=== PATIENT | female | born 1955 | race African-American/Black ===

== ENCOUNTER 2016-12-14 08:54 | Outpatient (CLI) | payer OTHER ==
[2016-12-14 09:33] LABS: #Basophils 0.1 thou/uL (0.0-0.2); #Eosinphils 0.4 thou/uL (0.0-0.7); #Lymphocytes 2.1 thou/uL (1.20-3.40); #Monocytes 0.5 thou/uL (0.11-0.59); #Neutrophils 3.9 thou/uL (1.40-6.50); %Basophils 1.8 % (0.0-1.0); %Eosinophils 5.1 % (0.0-10.0); %Lymphocytes 29.9 % (21.0-51.0); %Monocytes 7.5 % (0.0-10.0); %Neutrophils 55.6 % (42.0-75.0); Hemoglobin 14.1 g/dL (12.0-16.0); Mean Corpuscular HGB CONC 35.1 g/dL (32.0-36.0); Mean Corpuscular Hemoglobin 29.4 pg (27.0-31.0); Mean Corpuscular Volume 83.9 fl (81.0-99.0); Mean Platelet Volume 9.3 fL (7.4-10.4); Platelet Count 269 thou/uL (130-400); RBC Distribution Width 13.8 % (11.5-14.5); Red Blood Cell (RBC) Count 4.78 mill/uL (4.20-5.40); White Blood Cell (WBC) Count 7.1 thou/uL (4.8-10.8)
[2016-12-14 10:11] LABS: ALT (SGPT) 27 U/L (8-55); AST (SGOT) 32 U/L (5-34); Alkaline Phosphatase 86 U/L (40-150); Anion Gap 14 mmol/L (10-20); BUN (Urea Nitrogen) 11 mg/dL (9.8-20.1); Bilirubin, Total 0.4 mg/dL (0.2-1.2); Calc. Creatinine Clearance 0 mL/min (70-130); Calcium 8.6 mg/dL (7.8-10.44); Carbon Dioxide 27 mmol/L (23-31); Chloride 100 mmol/L (98-107); Estimated GFR-MDRD Greater than 90; Globulin 3.6 g/dL (2.4-3.5); Glucose 152 mg/dL (80-115); Protein, Total 7.6 g/dL (6.0-8.3); Sodium 138 mmol/L (136-145)
[2016-12-14 10:26] LABS: Free T4 (Free Thyroxine) 0.98 ng/dL (0.70-1.48); Thyroid Stimulating Hormone 2.9681 uIU/mL (0.35-4.94)
[2016-12-14 17:37] LABS: Potassium 2.9 mmol/L (3.5-5.1)
== END 2016-12-14 08:55 | disposition home or self-care (01) ==
LOC: MADLABBHPM 08:54
PROVIDERS: ATTEND Family Medicine
DX: G47.19 Other hypersomnia (principal)
CPT/HCPCS: 36415; 80053; 83036; 84439; 84443; 85025

== ENCOUNTER 2016-12-26 09:32 | Outpatient (CLI) | payer OTHER ==
[2016-12-26 10:09] LABS: Anion Gap 13 mmol/L (10-20); BUN (Urea Nitrogen) 15 mg/dL (9.8-20.1); Calc. Creatinine Clearance 0 mL/min (70-130); Calcium 9.4 mg/dL (7.8-10.44); Carbon Dioxide 24 mmol/L (23-31); Cardiac Risk 3.7 (Less than 4.5); Chloride 105 mmol/L (98-107); Cholesterol 220 mg/dl (< 200 Desired); Estimated GFR-MDRD 88; Glucose 107 mg/dL (80-115); HDL Cholesterol 60 mg/dL (>60 Neg Risk); LDL Cholesterol, Calculated 136 mg/dL; Potassium 3.4 mmol/L (3.5-5.1); Sodium 139 mmol/L (136-145); Triglycerides 118 mg/dL (Less than 150)
== END 2016-12-26 09:33 ==
LOC: MADLABBHPM 09:32
PROVIDERS: ATTEND Family Medicine
DX: E87.6 Hypokalemia (principal); E11.9 Type 2 diabetes mellitus without complications
CPT/HCPCS: 36415; 80048; 80061

== ENCOUNTER 2017-02-15 07:49 | Emergency (ER) | payer OTHER ==
[2017-02-15] MEDS ORDERED: HYDROcodone/Acetaminophen 10/325 mg Tablet ONE (08:42)
[2017-02-15] MEDS ORDERED: Ciprofloxacin 500 MG TAB ONE (08:58)
[2017-02-15 10:45] LABS: Clarity Clear (Clear)
[2017-02-15 10:46] LABS: Bacteria/HPF Rare-Few HPF (None Seen); Bilirubin Negative (Negative); Blood, Urine Negative (Negative); Glucose, Urine (Dipstick) Negative (Negative); Leukocyte Moderate (Negative); Nitrite Negative (Negative); Protein, Urine (Dipstick) Negative (Neg-Trace); RBC/HPF 0-3 HPF (0-3); Urobilinogen 0.2 mg/dL (0.2-1.0)
== END 2017-02-15 09:05 | disposition home or self-care (01) ==
LOC: MADERS 07:49
DX: N39.0 Urinary tract infection, site not specified (principal); E11.9 Type 2 diabetes mellitus without complications; I10 Essential (primary) hypertension; E78.00 Pure hypercholesterolemia, unspecified; Z79.899 Other long term (current) drug therapy; Z79.84 Long term (current) use of oral hypoglycemic drugs
CPT/HCPCS: 81003; 81015; 99283

== ENCOUNTER 2017-03-03 10:08 | Emergency (ER) | payer OTHER ==
[2017-03-03] MEDS ORDERED: Ketorolac Tromethamine 60 MG/2 ML VIAL ONE (10:44)
== END 2017-03-03 11:03 | disposition home or self-care (01) ==
LOC: MADERS 10:08
DX: M54.5 Low back pain (principal); I10 Essential (primary) hypertension; E11.9 Type 2 diabetes mellitus without complications; E78.00 Pure hypercholesterolemia, unspecified; M10.9 Gout, unspecified; W01.0XXA Fall on same level from slipping, tripping and stumbling without subsequent striking against object, initial encounter
CPT/HCPCS: 96372; J1885

== ENCOUNTER 2017-03-30 17:25 | Outpatient (CLI) | payer BC, OTHER | END 2017-03-30 17:26 | disposition home or self-care (01) | LOC: MADLABBHPM 17:25 | PROVIDERS: ATTEND Family Medicine | DX: R10.30 Lower abdominal pain, unspecified (principal) | CPT/HCPCS: 87086 ==

== ENCOUNTER 2017-05-24 08:07 | Outpatient (CLI) | payer BC ==
--- NOTE | 2017-05-24 11:47 | ULT ---
PELVIC ULTRASOUND: Technique: Transabdominal and endovaginal ultrasound of the pelvis performed. History: Post-menopausal bleeding x two weeks. FINDINGS: Uterus is enlarged and heterogeneous. Uterine measurements recorded at 12.1 x 8.8 x 8.2 cm. Endometrial stripe is not identified due to the diffuse heterogeneity of the uterus. A large solid e chogenic mass in the uterus measures up to 5 cm suggesting a large fibroid, possibly with some calci fications producing shadowing. Neither ovary is identified on either transabdominal or endovaginal exam. IMPRESSION: Enlarged heterogeneous uterus suggesting fibroid uterus. MRI pelvis is suggested to better define ut erine fibroids and ovaries as indicated. Ovaries are not identified on this study. POS: [facility]
== END 2017-05-24 08:08 | disposition home or self-care (01) ==
LOC: MADULT 08:07
PROVIDERS: ATTEND Family Medicine
DX: N95.0 Postmenopausal bleeding (principal)
CPT/HCPCS: 76856

== ENCOUNTER 2017-07-06 08:10 | Outpatient (CLI) | payer BC ==
[2017-07-07 15:51] LABS: Follow-up Chemistry Comp? YES; Follow-up Result - Chemistry REPORT FAXED
== END 2017-07-06 08:11 | disposition home or self-care (01) ==
LOC: MADLAB 08:10
PROVIDERS: ATTEND Student in an Organized Health Care Education/Training Program
DX: N83.9 Noninflammatory disorder of ovary, fallopian tube and broad ligament, unspecified (principal)
CPT/HCPCS: 36415; 86304

== ENCOUNTER 2017-08-16 11:49 | Emergency (ER) | payer BC ==
--- NOTE | 2017-08-16 12:54 | RAD ---
CHEST ONE VIEW: HISTORY: Cough. COMPARISON: Chest one view from 07/27/2017. FINDINGS: The port catheter tip sits at the mid SVC. The lungs are slightly hypoinflated. No focal air space consolidation, pneumothorax, or effusion. The cardiac silhouette and mediastinal contour are similar . IMPRESSION: 1. Lung hypoinflation and vascular crowding. 2. Possible nodule projecting in the right lung base, although this may be the confluence of shadows . Follow-up two views of the chest recommended. POS: [facility]
[2017-08-16 12:56] LABS: Eosinophils 1 % (0-10); Hemoglobin 11.5 g/dL (12.0-16.0); Lymphocytes 58 % (21-51); MDiff Complete? YES; Mean Corpuscular HGB CONC 33.3 g/dL (32.0-36.0); Mean Corpuscular Hemoglobin 26.5 pg (27.0-31.0); Mean Corpuscular Volume 79.5 fl (81.0-99.0); Mean Platelet Volume 8.4 fL (7.4-10.4); Monocytes 4 % (0-10); Neutrophil 37 % (42-75); Nucleated RBC 2 % (0); Platelet Count 139 thou/uL (130-400); RBC Distribution Width 14.2 % (11.5-14.5); Red Blood Cell (RBC) Count 4.36 mill/uL (4.20-5.40); White Blood Cell (WBC) Count 3.6 thou/uL (4.8-10.8)
[2017-08-16 13:01] LABS: ALT (SGPT) 17 U/L (8-55); AST (SGOT) 21 U/L (5-34); Alkaline Phosphatase 75 U/L (40-150); Anion Gap 18 mmol/L (10-20); BUN (Urea Nitrogen) 14 mg/dL (9.8-20.1); Bilirubin, Total 0.4 mg/dL (0.2-1.2); Calc. Creatinine Clearance 0 mL/min (70-130); Calcium 8.6 mg/dL (7.8-10.44); Carbon Dioxide 25 mmol/L (23-31); Chloride 104 mmol/L (98-107); Estimated GFR-MDRD Greater than 90; Globulin 3.6 g/dL (2.4-3.5); Glucose 91 mg/dL (80-115); Potassium 3.6 mmol/L (3.5-5.1); Protein, Total 7.6 g/dL (6.0-8.3); Sodium 143 mmol/L (136-145)
[2017-08-16 13:03] LABS: Troponin I Less than 0.010 ng/mL (< 0.028)
[2017-08-16 13:35] LABS: CKMB 1.5 ng/mL (0-6.6)
[2017-08-16 17:06] LABS: PTT 34.4 SEC (22.9-36.1); Prothrombin Time 14.2 SEC (12.0-14.7)
[2017-08-16 17:29] LABS: D-Dimer Test Greater than 20.00 *mcg/mL (0.27-0.43)
[2017-08-17 10:13] LABS: INR-International Normal Ratio 1.1
== END 2017-08-16 12:48 | disposition short-term general hospital (02) ==
LOC: MADERS 11:49
DX: R07.9 Chest pain, unspecified (principal); E11.9 Type 2 diabetes mellitus without complications; I10 Essential (primary) hypertension; Z79.899 Other long term (current) drug therapy
CPT/HCPCS: 71045; 80053; 82553; 84484; 85025; 85379; 85610; 85730; 93005; 94760

== ENCOUNTER 2017-09-08 17:50 | Emergency (ER) | payer BC ==
[~2017-09-08 17:50] MED LIST: NS 0.9% w/ 40 MEQ KCL 1,000 ML BAG IV ONE
[2017-09-08] MEDS ORDERED: methylPREDNISolone Sod Succ/PF 125 MG/2 ML VIAL ONE (18:43)
[2017-09-08] MEDS ORDERED: Dexamethasone 10 MG/ML VIAL ONE (18:44)
[2017-09-08] MEDS ORDERED: Lorazepam 2 MG/ML VIAL ONE (18:45)
[2017-09-08] MEDS ORDERED: Sodium Chloride 0.9% 1,000 ML ONE (18:46)
[2017-09-08 18:50] LABS: INR-International Normal Ratio 1.1; PTT 37.8 SEC (22.9-36.1); Prothrombin Time 14.3 SEC (12.0-14.7)
--- NOTE | 2017-09-08 18:57 | RAD ---
FRONTAL VIEW CHEST 09/08/17 COMPARISON: 08/16/17 INDICATION: Weakness. FINDINGS: Left chest port remains. Lungs are hypoinflated. Mild interstitial perihilar prominence is present wh ich may be related to edema. Cardiomediastinal silhouette is stable. IMPRESSION: Findings to indicate mild edema. Correlate clinically. POS: [facility]
[2017-09-08 19:02] LABS: ALT (SGPT) 14 U/L (8-55); AST (SGOT) 19 U/L (5-34); Albumin 3.8 g/dL (3.4-4.8); Alkaline Phosphatase 69 U/L (40-150); Anion Gap 20 mmol/L (10-20); BUN (Urea Nitrogen) 24 mg/dL (9.8-20.1); Bilirubin, Total 0.4 mg/dL (0.2-1.2); CK (CPK) 94 U/L (29-168); CKMB 0.5 ng/mL (0-6.6); Calc. Creatinine Clearance 0 mL/min (70-130); Calcium 7.6 mg/dL (7.8-10.44); Carbon Dioxide 22 mmol/L (23-31); Chloride 102 mmol/L (98-107); Estimated GFR-MDRD 85; Globulin 3.4 g/dL (2.4-3.5); Glucose 107 mg/dL (80-115); Lipase 25 U/L (8-78); Protein, Total 7.2 g/dL (6.0-8.3); Sodium 141 mmol/L (136-145); Troponin I Less than 0.010 ng/mL (< 0.028)
[2017-09-08 19:09] LABS: Potassium 2.5 mmol/L (3.5-5.1)
[2017-09-08 19:16] LABS: Mean Corpuscular HGB CONC 33.3 g/dL (32.0-36.0); Mean Corpuscular Hemoglobin 25.8 pg (27.0-31.0); Mean Corpuscular Volume 77.3 fl (81.0-99.0); Mean Platelet Volume 8.1 fL (7.4-10.4); Platelet Count 197 thou/uL (130-400); RBC Distribution Width 15.5 % (11.5-14.5); Red Blood Cell (RBC) Count 3.87 mill/uL (4.20-5.40); White Blood Cell (WBC) Count 3.9 thou/uL (4.8-10.8)
[2017-09-08 19:17] LABS: Lymphocytes 65 % (21-51); MDiff Complete? YES; Metamyelocyte 2 % (0-0); Monocytes 6 % (0-10); Myelocyte 2 % (0-0); Neutrophil 12 % (42-75); PLT Morphology Comment Appears Adequate; Reactive Lymphocytes 13 % (0-10)
[2017-09-08 19:51] LABS: Bilirubin Negative (Negative); Blood, Urine Trace (Negative); Clarity Hazy (Clear); Glucose, Urine (Dipstick) Negative (Negative); Leukocyte Small (Negative); Nitrite Negative (Negative); Protein, Urine (Dipstick) Negative (Neg-Trace); RBC/HPF 0-3 HPF (0-3); Specific Gravity, Urine 1.013 (1.002-1.036); Urobilinogen 0.2 mg/dL (0.2-1.0); pH, Urine 5.5 (5.0-9.0)
[2017-09-08 19:52] LABS: Bacteria/HPF Rare-Few HPF (None Seen); Squamous Epithelial 0-3 HPF (0-3)
[2017-09-08] MEDS ORDERED: Ondansetron HCl/PF 4 MG/2 ML Vial ONE ×2 (19:52→19:53)
[2017-09-08] MEDS ORDERED: Potassium Chloride 20 MEQ TAB ONE (20:05)
== END 2017-09-08 22:10 | disposition short-term general hospital (02) ==
LOC: MADERS 17:50
DX: E87.6 Hypokalemia (principal); E83.42 Hypomagnesemia; R06.4 Hyperventilation; N39.0 Urinary tract infection, site not specified; C56.9 Malignant neoplasm of unspecified ovary; I10 Essential (primary) hypertension; E78.00 Pure hypercholesterolemia, unspecified; Z79.899 Other long term (current) drug therapy; Z79.84 Long term (current) use of oral hypoglycemic drugs
CPT/HCPCS: 71045; 80053; 81001; 82150; 82550; 82553; 83690; 83735; 83880; 84484; 85025; 85610; 85730; 87040; 87081; 87086; 87430; 87804; 93005; 94760; 96361; 96365; 96374; 96375; J1100; J2060; J2405; J2930; J7050; J7620

== ENCOUNTER 2017-09-25 13:56 | Emergency (ER) | payer BC ==
[2017-09-25] MEDS ORDERED: MORPHINE 10 MG/ML SYRINGE ONE (14:42)
[2017-09-25] MEDS ORDERED: Ondansetron HCl/PF 4 MG/2 ML Vial ONE (14:42)
[2017-09-25] MEDS ORDERED: Lorazepam 2 MG/ML VIAL ONE (14:42)
[2017-09-25] MEDS ORDERED: Ketorolac Tromethamine 30 MG/ML VIAL ONE (14:42)
--- NOTE | 2017-09-25 15:13 | CT ---
CT BRAIN WITHOUT CONTRAST: Date: 09/25/17 HISTORY: Facial tingling and numbness. Patient has end-stage cancer. FINDINGS: No evidence of infarct, hemorrhage, midline shift, or abnormal extra-axial fluid collections are seen . The ventricular size is normal and the basilar cisterns are patent. The bony calvarium is intact. T here is mucosal disease in the left posterior ethmoid air cells. Absence of IV contrast reduces the sensitivity of exam. If there is concern for intracranial metastas is, further evaluation with contrast enhanced MRI should be performed. IMPRESSION: No CT evidence of acute intracranial process. POS: [facility]
[2017-09-25 15:32] LABS: ALT (SGPT) 14 U/L (8-55); AST (SGOT) 16 U/L (5-34); Albumin 3.7 g/dL (3.4-4.8); Alkaline Phosphatase 66 U/L (40-150); Anion Gap 21 mmol/L (10-20); BUN (Urea Nitrogen) 13 mg/dL (9.8-20.1); Bilirubin, Total 0.4 mg/dL (0.2-1.2); Calc. Creatinine Clearance 0 mL/min (70-130); Carbon Dioxide 18 mmol/L (23-31); Chloride 106 mmol/L (98-107); Estimated GFR-MDRD 81; Globulin 2.9 g/dL (2.4-3.5); Glucose 79 mg/dL (80-115); Protein, Total 6.6 g/dL (6.0-8.3); Sodium 142 mmol/L (136-145)
[2017-09-25 15:36] LABS: Anisocytosis SLIGHT = 6-15 cells (100X) (0-5/hpf); Band 2 % (5-11); Hypochromia SLIGHT = 6-15 cells (100X) (0-5/hpf); Lymphocytes 32 % (21-51); MDiff Complete? YES; Mean Corpuscular HGB CONC 33.1 g/dL (32.0-36.0); Mean Corpuscular Hemoglobin 26.3 pg (27.0-31.0); Mean Corpuscular Volume 79.3 fl (81.0-99.0); Mean Platelet Volume 9.1 fL (7.4-10.4); Metamyelocyte 1 % (0-0); Monocytes 11 % (0-10); Myelocyte 1 % (0-0); Neutrophil 36 % (42-75); Nucleated RBC 3 % (0); PLT Morphology Comment Appears Adequate; Platelet Count 158 thou/uL (130-400); Polychromasia SLIGHT = 2-3 cells (100X) (0-2/hpf); RBC Distribution Width 20.2 % (11.5-14.5); Reactive Lymphocytes 17 % (0-10); Red Blood Cell (RBC) Count 3.06 mill/uL (4.20-5.40); White Blood Cell (WBC) Count 5.6 thou/uL (4.8-10.8)
[2017-09-25 15:51] LABS: Potassium 2.8 mmol/L (3.5-5.1)
[2017-09-25 16:46] LABS: Bilirubin Negative (Negative); Blood, Urine Negative (Negative); Clarity Clear (Clear); Glucose, Urine (Dipstick) Negative (Negative); Leukocyte Negative (Negative); Nitrite Negative (Negative); Protein, Urine (Dipstick) Negative (Neg-Trace); Urobilinogen 0.2 mg/dL (0.2-1.0)
[2017-09-25 16:57] LABS: Bacteria/HPF Rare-Few HPF (None Seen); Crystals/HPF 2+ AMORPH URATES HPF (Negative); RBC/HPF None Seen HPF (0-3); Squamous Epithelial 0-3 HPF (0-3); WBC/HPF None Seen HPF (0-3)
== END 2017-09-25 18:20 | disposition home or self-care (01) ==
LOC: MADERS 13:56
DX: D64.9 Anemia, unspecified (principal); F43.0 Acute stress reaction; E87.6 Hypokalemia; F41.9 Anxiety disorder, unspecified; M10.9 Gout, unspecified; E78.00 Pure hypercholesterolemia, unspecified; E11.9 Type 2 diabetes mellitus without complications; I10 Essential (primary) hypertension; F32.9 Major depressive disorder, single episode, unspecified; Z79.84 Long term (current) use of oral hypoglycemic drugs; Z79.899 Other long term (current) drug therapy
CPT/HCPCS: 51701; 70450; 80053; 81001; 85025; 87086; 93005; 96374; 96375; A4353; J1885; J2060; J2270; J2405

== ENCOUNTER 2017-09-28 14:49 | Outpatient (CLI) | payer BC ==
[2017-09-28 15:11] LABS: Hemoglobin 7.7 g/dL (12.0-16.0); Mean Corpuscular HGB CONC 31.6 g/dL (32.0-36.0); Mean Corpuscular Hemoglobin 26.5 pg (27.0-31.0); Mean Corpuscular Volume 83.7 fl (81.0-99.0); Mean Platelet Volume 7.5 fL (7.4-10.4); Platelet Count 158 thou/uL (130-400); RBC Distribution Width 23.7 % (11.5-14.5); Red Blood Cell (RBC) Count 2.93 mill/uL (4.20-5.40); White Blood Cell (WBC) Count 4.8 thou/uL (4.8-10.8)
[2017-09-28 15:17] LABS: ALT (SGPT) 13 U/L (8-55); AST (SGOT) 18 U/L (5-34); Albumin 3.6 g/dL (3.4-4.8); Alkaline Phosphatase 71 U/L (40-150); Anion Gap 17 mmol/L (10-20); BUN (Urea Nitrogen) 11 mg/dL (9.8-20.1); Bilirubin, Total 0.3 mg/dL (0.2-1.2); Calc. Creatinine Clearance 0 mL/min (70-130); Calcium 6.9 mg/dL (7.8-10.44); Carbon Dioxide 22 mmol/L (23-31); Chloride 108 mmol/L (98-107); Estimated GFR-MDRD Greater than 90; Globulin 2.8 g/dL (2.4-3.5); Glucose 89 mg/dL (80-115); Potassium 3.5 mmol/L (3.5-5.1); Protein, Total 6.4 g/dL (6.0-8.3); Sodium 143 mmol/L (136-145)
== END 2017-09-28 14:50 | disposition home or self-care (01) ==
LOC: MADLAB 14:49
PROVIDERS: ATTEND Internal Medicine Hematology & Oncology
DX: C56.1 Malignant neoplasm of right ovary (principal)
CPT/HCPCS: 36415; 80053; 85027

== ENCOUNTER 2017-10-02 11:48 | Outpatient (CLI) | payer BC ==
[2017-10-02 13:04] LABS: #Basophils 0.1 thou/uL (0.0-0.2); #Eosinphils 0.1 thou/uL (0.0-0.7); #Lymphocytes 1.9 thou/uL (1.20-3.40); #Monocytes 0.6 thou/uL (0.11-0.59); #Neutrophils 1.7 thou/uL (1.40-6.50); %Basophils 2.1 % (0.0-1.0); %Eosinophils 1.5 % (0.0-10.0); %Monocytes 13.1 % (0.0-10.0); %Neutrophils 38.3 % (42.0-75.0); Hemoglobin 8.1 g/dL (12.0-16.0); Mean Corpuscular HGB CONC 32.8 g/dL (32.0-36.0); Mean Corpuscular Volume 85.4 fl (81.0-99.0); Mean Platelet Volume 6.9 fL (7.4-10.4); Platelet Count 102 thou/uL (130-400); RBC Distribution Width 23.7 % (11.5-14.5); Red Blood Cell (RBC) Count 2.88 mill/uL (4.20-5.40); White Blood Cell (WBC) Count 4.3 thou/uL (4.8-10.8)
[2017-10-02 13:12] LABS: Anisocytosis SLIGHT = 6-15 cells (100X) (0-5/hpf); Hypochromia SLIGHT = 6-15 cells (100X) (0-5/hpf); Poikilocytosis SLIGHT = 6-15 cells (100X) (0-5/hpf)
[2017-10-02 13:16] LABS: PLT Morphology Comment Appears Adequate
== END 2017-10-02 11:49 | disposition home or self-care (01) ==
LOC: MADLAB 11:48
PROVIDERS: ATTEND Obstetrics & Gynecology Gynecologic Oncology
DX: C56.1 Malignant neoplasm of right ovary (principal); D70.1 Agranulocytosis secondary to cancer chemotherapy
CPT/HCPCS: 85025

== ENCOUNTER 2018-01-29 15:11 | Outpatient (CLI) | payer OTHER ==
[2018-01-29 15:40] LABS: #Lymphocytes 2.3 thou/uL (1.20-3.40); #Monocytes 0.6 thou/uL (0.11-0.59); #Neutrophils 1.7 thou/uL (1.40-6.50); %Eosinophils 0.4 % (0.0-10.0); %Monocytes 13.4 % (0.0-10.0); %Neutrophils 36.2 % (42.0-75.0); Hemoglobin 7.8 g/dL (12.0-16.0); Mean Corpuscular HGB CONC 33.5 g/dL (32.0-36.0); Mean Corpuscular Volume 83.5 fL (78.0-98.0); Mean Platelet Volume 6.1 fL (7.4-10.4); Platelet Count 136 thou/uL (130-400); RBC Distribution Width 15.9 % (11.5-14.5); Red Blood Cell (RBC) Count 2.78 mill/uL (4.20-5.40); White Blood Cell (WBC) Count 4.8 thou/uL (4.8-10.8)
== END 2018-01-29 15:12 | disposition home or self-care (01) ==
LOC: MADLAB 15:11
PROVIDERS: ATTEND Internal Medicine Hematology & Oncology
DX: C56.1 Malignant neoplasm of right ovary (principal); D70.1 Agranulocytosis secondary to cancer chemotherapy
CPT/HCPCS: 36415; 85025

== ENCOUNTER 2018-11-06 12:04 | Outpatient (CLI) | payer BC, MEDICARE ==
--- NOTE | 2018-11-06 12:38 | RAD ---
LEFT SHOULDER THREE VIEWS: 11/06/18 HISTORY: Shoulder pain x2 months. There is mild arthrosis of the AC and glenohumeral joints. There is no signs of fracture or dislocati on. Left sided Mediport catheter is present. IMPRESSION: Mild arthritic changes of the shoulder. No acute findings. POS: [facility]
== END 2018-11-06 12:05 | disposition home or self-care (01) ==
LOC: MADRAD 12:04
PROVIDERS: ATTEND Family Medicine
DX: M25.512 Pain in left shoulder (principal); M19.012 Primary osteoarthritis, left shoulder

== ENCOUNTER 2018-11-26 07:12 | Emergency (ER) | payer MEDICARE, BC | END 2018-11-26 10:15 | disposition home or self-care (01) | LOC: MADERS 07:12 | DX: K56.41 Fecal impaction (principal); E11.9 Type 2 diabetes mellitus without complications; I10 Essential (primary) hypertension; M10.9 Gout, unspecified; F41.9 Anxiety disorder, unspecified; F32.9 Major depressive disorder, single episode, unspecified; Z79.899 Other long term (current) drug therapy; Z79.891 Long term (current) use of opiate analgesic; Z79.01 Long term (current) use of anticoagulants | CPT/HCPCS: 99283 ==